=== PATIENT | female | born 1960 | race Caucasian/White ===

== ENCOUNTER 2021-03-04 13:45 | Inpatient (IN) | payer MEDICAID, SELFPAY ==
[~2021-03-04] VITALS: Ht 160 cm; Wt 63.5 kg
[2021-03-04 13:51] VITALS: BP 142/90
[2021-03-04] MEDS ORDERED: NACL 0.9% 1,000 ML IV ONE (14:20)
[2021-03-04] MEDS ORDERED: MORPHINE SULFATE 2 MG/ML SYR IVP ONE (14:30)
[2021-03-04 14:44] LABS: BASOPHILS % (AUTO) 0.2 % (0.0-2.0); EOSINOPHILS % (AUTO) 0.2 % (0.0-4.0); HEMOGLOBIN 8.7 g/dL (12.0-16.0); LYMPHOCYTES # (AUTO) 1.3 K/uL (2.5-16.5); LYMPHOCYTES % (AUTO) 13.2 % (20.5-51.1); MEAN CORPUSCULAR HEMOGLOBIN 29 pg (27-31); MEAN CORPUSCULAR HGB CONC 31 g/dL (33-37); MEAN CORPUSCULAR VOLUME 93.7 fL (80-94); MONOCYTES # (AUTO) 0.8 K/uL (0.8-1.0); MONOCYTES % (AUTO) 7.8 % (1.7-9.3); NEUTROPHILS % (AUTO) 78.6 % (42.2-75.2); PLATELET COUNT (AUTO) 75 K/uL (140-450); RED BLOOD CELL COUNT(AUTO) 2.99 MIL/uL (4.20-5.40); RED CELL DISTRIBUTION WIDTH 17.6 % (11.6-13.7); WHITE BLOOD COUNT (AUTO) 10.2 K/uL (4.8-10.8)
[2021-03-04 15:05] LABS: ALBUMIN 1.6 g/dL (3.4-5.0); ANION GAP 20.4 (8-16); CARBON DIOXIDE 16.1 mmol/L (21-32); CREATININE 1.3 mg/dL (0.6-1.3); POTASSIUM 3.5 mmol/L (3.5-5.1); TOTAL BILIRUBIN 1.9 mg/dL (0.0-1.0)
[2021-03-04] MEDS ORDERED: VANCOMYCIN 1,000 MG in DEXTROSE 5% 250 ML IV ONE (15:25)
[2021-03-04] MEDS ORDERED: PIPERACILLIN/TAZOBACTAM 3.375 GM in DEXTROSE 5% 50 ML IV ONE (15:25)
[2021-03-04] MEDS ORDERED: INTUBATION KIT MC ONE (15:31)
[2021-03-04] MEDS ORDERED: KETAMINE 500 MG/5 ML VIAL ONE (15:32)
[2021-03-04] MEDS ORDERED: NOREPINEPHRINE 4 MG/4 ML VIAL IV ONE ×5 (15:47→23:27)
[2021-03-04] MEDS ORDERED: NOREPINEPHRINE 4 MG in DEXTROSE 5% 250 ML IV ONE (15:50)
[2021-03-04] MEDS ORDERED: CLINDAMYCIN 600 MG in DEXTROSE 5% 50 ML IV ONE (16:00)
[2021-03-04] MEDS ORDERED: SUCCINYLCHOLINE CHLORIDE 200 MG/10 ML VIAL IVP ONE (16:05)
[2021-03-04] MEDS ORDERED: KETAMINE 500 MG/5 ML VIAL IVP ONE ×3 (16:05→16:50)
[2021-03-04] MEDS ORDERED: ACETAMINOPHEN 650 MG/20.3 ML UDC PO ONE (16:05)
[2021-03-04] MEDS ORDERED: PIPERACILLIN/TAZOBACTAM 3.375 GM VIAL IV ONE (16:17)
[2021-03-04 16:25] LABS: PROTHROMBIN TIME 12.2 secs (10.8-13.4)
[2021-03-04] MEDS ORDERED: CLINDAMYCIN 600 MG/4 ML VIAL ONE (16:36)
[2021-03-04] MEDS ORDERED: VANCOMYCIN 1,000 MG VIAL ONE (16:38)
[2021-03-04] MEDS ORDERED: LORazepam 2 MG/ML VIAL ONE (17:00)
[2021-03-04] MEDS: DEXMEDETOMIDINE HCL 400 MCG in NACL 0.9% 96 ML IV PRN (18:30)
[2021-03-04] MEDS ORDERED: ACETAMINOPHEN 650 MG/20.3 ML UDC ONE (18:34)
[2021-03-04] MEDS ORDERED: MAGNESIUM OXIDE 400 MG TAB PO PRN (19:50)
[2021-03-04] MEDS ORDERED: ACETAMINOPHEN 325 MG TAB PO PRN (19:50)
[2021-03-04] MEDS ORDERED: HYDROcodone/APAP 5/325 MG 1 TAB TAB PO PRN (19:50)
[2021-03-04] MEDS: NACL 0.9% 1,000 ML IV SCH (19:50)
[2021-03-04] MEDS ORDERED: DOCUSATE SODIUM 100 MG GELCAP PO PRN (19:50)
[2021-03-04] MEDS ORDERED: MORPHINE SULFATE 2 MG/ML SYR IVP PRN (19:50)
[2021-03-04] MEDS ORDERED: VANCOMYCIN PER PHARMACY MC PRN (19:50)
[2021-03-04] MEDS ORDERED: ONDANSETRON 4 MG/2 ML VIAL IM/IVP PRN (19:50)
[2021-03-04] MEDS ORDERED: MAG SULF 2000 MG/WATER PREMIX 50 ML IV PRN (19:50)
[2021-03-04 20:00] VITALS: BP 105/51
[2021-03-04] MEDS: NOREPINEPHRINE 8 MG in DEXTROSE 5% 250 ML IV PRN (20:11)
[2021-03-04 22:15] LABS: MAGNESIUM 1.3 mg/dL (1.8-2.4)
[2021-03-04 22:17] LABS: PHOSPHORUS 2.5 mg/dL (2.5-4.9)
[2021-03-04] MEDS: VASOPRESSIN 20 UNITS in NACL 0.9% 250 ML IV PRN (23:39)
[2021-03-04] MEDS ORDERED: VASOPRESSIN 20 UNITS/ML VIAL ONE (23:39)
[2021-03-04] MEDS ORDERED: DEXMEDETOMIDINE HCL 100 MCG/ML 2 ML VIAL IV ONE (23:46)
[2021-03-05] VITALS (15 sets, daily range): BP systolic 38–138; BP diastolic 12–101
[2021-03-05] MEDS ORDERED: PHENYLEPHRINE 10 MG/ML VIAL ONE ×3 (00:15→05:47)
[2021-03-05] MEDS ORDERED: PIPERACILLIN/TAZOBACTAM 2.25 GM VIAL IV ONE ×2 (00:41→05:35)
[2021-03-05] MEDS ORDERED: NOREPINEPHRINE 4 MG/4 ML VIAL IV ONE ×2 (02:14→05:46)
[2021-03-05] MEDS: PHENYLEPHRINE 40 MG in NACL 0.9% 250 ML IV PRN ×4 (02:15→16:02)
[2021-03-05] MEDS: VASOPRESSIN 20 UNITS in NACL 0.9% 250 ML IV PRN ×2 (02:58→06:31)
[2021-03-05] MEDS: NACL 0.9% 1,000 ML IV SCH ×6 (03:00→15:19)
[2021-03-05] MEDS: NOREPINEPHRINE 8 MG in DEXTROSE 5% 250 ML IV PRN ×2 (03:02→06:22)
[2021-03-05 05:08] LABS: BASOPHILS # (AUTO) 0.1 K/uL (0.00-0.22); BASOPHILS % (AUTO) 0.3 % (0.0-2.0); EOSINOPHILS % (AUTO) 0.1 % (0.0-4.0); HEMOGLOBIN 7.4 g/dL (12.0-16.0); LYMPHOCYTES # (AUTO) 3.7 K/uL (2.5-16.5); LYMPHOCYTES % (AUTO) 10.5 % (20.5-51.1); MEAN CORPUSCULAR HEMOGLOBIN 28 pg (27-31); MEAN CORPUSCULAR HGB CONC 27 g/dL (33-37); MEAN CORPUSCULAR VOLUME 100.1 fL (80-94); MONOCYTES # (AUTO) 1.3 K/uL (0.8-1.0); MONOCYTES % (AUTO) 3.9 % (1.7-9.3); NEUTROPHILS # (AUTO) 29.8 K/uL (1.8-7.7); NEUTROPHILS % (AUTO) 85.2 % (42.2-75.2); PLATELET COUNT (AUTO) 113 K/uL (140-450); RED BLOOD CELL COUNT(AUTO) 2.69 MIL/uL (4.20-5.40); RED CELL DISTRIBUTION WIDTH 18.1 % (11.6-13.7)
[2021-03-05 05:45] LABS: ALBUMIN 1.4 g/dL (3.4-5.0); ANION GAP 28.2 (8-16); CREATININE 1.8 mg/dL (0.6-1.3); POTASSIUM 3.9 mmol/L (3.5-5.1); TOTAL BILIRUBIN 1.3 mg/dL (0.0-1.0)
[2021-03-05 06:02] LABS: CARBON DIOXIDE 6.7 mmol/L (21-32)
[2021-03-05] MEDS ORDERED: VASOPRESSIN 20 UNITS/ML VIAL ONE (06:07)
[2021-03-05] MEDS: PIPERACILLIN/TAZOBACTAM 2.25 GM in DEXTROSE 5% 50 ML IV SCH ×5 (06:18→18:44)
[2021-03-05] MEDS ORDERED: DEXMEDETOMIDINE HCL 100 MCG/ML 2 ML VIAL IV ONE (07:17)
[2021-03-05] MEDS: DEXMEDETOMIDINE HCL 400 MCG in NACL 0.9% 96 ML IV PRN (07:30)
[2021-03-05] MEDS ORDERED: VANCOMYCIN HCL 1.25 GM in DEXTROSE 5% 250 ML IV SCH (09:00)
[2021-03-05] MEDS ORDERED: PANTOPRAZOLE 40 MG INJ VIAL IVP SCH (09:00)
[2021-03-05] MEDS ORDERED: NACL 0.9% 1,000 ML IV SCH ×2 (10:00→15:05)
[2021-03-05] MEDS ORDERED: NOREPINEPHRINE 16 MG in DEXTROSE 5% 250 ML IV PRN (10:15)
[2021-03-05] MEDS ORDERED: LORazepam 2 MG/ML VIAL IVP PRN (11:15)
[2021-03-05] MEDS ORDERED: DOPamine 400 MG/D5W PREMIX 250 ML IV ONE (15:44)
[2021-03-05] MEDS ORDERED: DOPamine 400 MG/D5W PREMIX 250 ML IV PRN (15:45)
[2021-03-05] MEDS ORDERED: HYDROCORTISONE NA SUCC 100 MG/2 ML VIAL IV SCH (16:00)
[2021-03-05] MEDS ORDERED: SODIUM BICARBONATE 8.4% 100 MEQ in DEXTROSE 5% 1,000 ML IV ONE (17:30)
[2021-03-06] MEDS ORDERED: NACL 0.9% 1,000 ML IV SCH (04:30)
[2021-03-06 15:06] LABS: HEPATITIS A ANTIBODY IGM Negative (Negative); HEPATITIS B CORE AB TOTAL Negative (Negative); HEPATITIS B SURFACE ANTIBODY Reactive (.); HEPATITIS B SURFACE ANTIGEN Negative (Negative)
== END 2021-03-05 17:40 | DRG 720 ==
LOC: MED 13:45 → MIC 20:25
PROVIDERS: ADMIT Hospitalist; ATTEND Hospitalist
PROC: 5A1935Z Respiratory Ventilation, Less than 24 Consecutive Hours (ICD-10-PCS; principal; 2021-03-04)
PROC: 0BH18EZ Insertion of Endotracheal Airway into Trachea, Via Natural or Artificial Opening Endoscopic (ICD-10-PCS; 2021-03-04)
DX: A41.9 Sepsis, unspecified organism (principal); N17.0 Acute kidney failure with tubular necrosis; J96.01 Acute respiratory failure with hypoxia; R65.21 Severe sepsis with septic shock; E43 Unspecified severe protein-calorie malnutrition; G93.40 Encephalopathy, unspecified; E72.20 Disorder of urea cycle metabolism, unspecified; E87.2 Acidosis; D63.8 Anemia in other chronic diseases classified elsewhere; I21.4 Non-ST elevation (NSTEMI) myocardial infarction; I10 Essential (primary) hypertension; F10.10 Alcohol abuse, uncomplicated; Y90.9 Presence of alcohol in blood, level not specified; K52.9 Noninfective gastroenteritis and colitis, unspecified; K70.30 Alcoholic cirrhosis of liver without ascites; E83.42 Hypomagnesemia; E80.6 Other disorders of bilirubin metabolism; E87.0 Hyperosmolality and hypernatremia; R13.11 Dysphagia, oral phase; Z20.822 Contact with and (suspected) exposure to COVID-19; Z99.11 Dependence on respirator [ventilator] status
CPT/HCPCS: 31500; 36415; 36556; 36600; 51702; 70450; 71045; 71275; 76700; 80053; 80202; 82140; 82150; 82693; 82803; 83605; 83690; 83735; 83880; 84100; 84484; 84600; 85025; 85379; 85610; 85651; 86140; 86704; 86706; 86708; 86709; 86803; 87040; 87340; 93005; 94003; 96361; 96365; 96367; 96368; 96375; 99291; C9113; G0482; J1265; J1720; J2060; J2270; J2370; J2543; J3370; J3475; J3490; J7030; J7060; Q0092; Q9967